=== PATIENT | female | born 1985 | race Caucasian/White ===

== ENCOUNTER 2017-06-06 15:00 | Outpatient (CLI) | payer MEDICAID ==
[2017-06-06] MEDS ORDERED: IOTHALAMATE MEGLUMINE 50 ML VIAL ONE (15:21)
[2017-06-06] MEDS ORDERED: IOTHALAMATE MEGLUMINE 50 ML VIAL IVP ONE (15:51)
--- NOTE | 2017-06-06 18:51 | XRAY Report ---
HYSTEROSALPINGOGRAM: 06/06/2017 CLINICAL INDICATION: Infertility, pelvic inflammatory disease. Hysterosalpingogram was performed in conjunction with Dr. Alcantar. The uterine cavity appears unrema rkable. The left fallopian tube is patent, with free spill into the pelvis. The right fallopian tub e demonstrates opacification of only the proximal intramuscular portion, without more distal opacific ation. No spill is seen from the right tube. IMPRESSION: PATENT LEFT FALLOPIAN TUBE, WITH FREE SPILL INTO THE PELVIS. ONLY A SMALL SEGMENT OF TH E RIGHT FALLOPIAN TUBE WAS OPACIFIED, WITHOUT FILLING OF THE MID AND DISTAL PORTIONS, AND NO FREE SPI LL ON THE RIGHT. FLUOROSCOPY TIME: 1 MINUTE 26 SECONDS; 5 SPOT IMAGES OBTAINED. JOB #: [id number] EXT JOB #:[id number]
== END 2017-06-06 15:01 | disposition home or self-care (01) ==
LOC: DI 15:00
PROVIDERS: ATTEND Obstetrics & Gynecology
DX: N73.8 Other specified female pelvic inflammatory diseases (principal)
CPT/HCPCS: 58340; 74740; Q9961

== ENCOUNTER 2017-06-21 12:40 | Outpatient (CLI) | payer MEDICAID | END 2017-06-21 12:41 | disposition home or self-care (01) | LOC: LAB.N 12:40 | PROVIDERS: ATTEND Obstetrics & Gynecology | DX: N92.6 Irregular menstruation, unspecified (principal) | CPT/HCPCS: 36415; 84144 ==

== ENCOUNTER 2018-09-24 14:33 | Outpatient (CLI) | payer SELFPAY | END 2018-09-24 14:34 | disposition home or self-care (01) | LOC: LAB 14:33 | PROVIDERS: ATTEND Registered Nurse | DX: O46.91 Antepartum hemorrhage, unspecified, first trimester (principal) | CPT/HCPCS: 36415; 84702; 86900; 86901 ==

== ENCOUNTER 2018-09-26 15:11 | Outpatient (CLI) | payer MEDICAID | END 2018-09-26 15:12 | disposition home or self-care (01) | LOC: LAB 15:11 | PROVIDERS: ATTEND Registered Nurse | DX: O46.91 Antepartum hemorrhage, unspecified, first trimester (principal) | CPT/HCPCS: 36415; 84702 ==

== ENCOUNTER 2018-09-27 22:45 | Outpatient (CLI) | payer MEDICAID ==
--- NOTE | 2018-09-28 02:17 | Ultrasound Report ---
Reason: VAGINAL BLEEDING FIRST TRIMESTER Procedure Date: 09/27/2018 Accession Number: [id number] / [id number] Procedure: US - OB Transvaginal CPT Code: FULL RESULT: EXAM: FIRST TRIMESTER OBSTETRIC ULTRASOUND (Less than 11 weeks) EXAM DATE: 09/28/2018 12:08 AM. CLINICAL HISTORY: Vaginal bleeding, first trimester LMP: 08/10/2018. COMPARISONS: None. TECHNIQUE: Transabdominal and transvaginal ultrasound examination with static image documentation. CLINICAL DATES: EGA 7 weeks 0 days with JAMARCUS 05/17/2019 based on LMP. ASSESSMENT: Gestational Sac: Single intrauterine. Mean gestational sac diameter: 18.3 mm = 6 weeks 1 day. Minimal irregularity of the anterior margin of the gestational sac. Embryo: CRL (crown-rump length) 8.4 mm = 6 weeks 6 days. Cardiac activity: 123 beats per minute. Yolk sac: 2.7 mm. Amniotic fluid: Not accurately assessed at this gestational age. Early placenta: Not visible at this gestational age. Other: 5 mm perigestational hemorrhage.. MATERNAL STRUCTURES: Uterus: Anteverted. Unremarkable. Cervix: Closed. Right Ovary/Adnexa: The ovary measures 2.8 x 1.7 x 1.4 cm, volume 4 cc. Unremarkable. Left Ovary/Adnexa: The ovary measures 2.8 x 2.0 x 1.9 cm, volume 6 cc. 1.6 cm corpus luteum. Free Fluid: Small amount in the cul-de-sac. Other: None. IMPRESSION: 1. Single viable intrauterine at EGA 6 weeks 6 days with JAMARCUS 05/18/2019 based on crown-rump length, which is concordant with clinical dates. 2. Assigned dating is JAMARCUS 05/17/2019 based on LMP. 3. Small desi-gestational hemorrhage. RADIA The call report notification system was initiated by Dr. Eduardo Bernstein at 01:33 AM on 09/28/2018. The above call report findings were discussed with Bev White by Dr. Eduardo Bernstein at 01:39 AM on 09/28/2018.
--- NOTE | 2018-09-28 21:58 | Ultrasound Report ---
Reason: VAGINAL BLEEDING, FIRST TRIMESTER Procedure Date: 09/28/2018 Accession Number: [id number] / [id number] Procedure: US - OB First Trimester CPT Code: FULL RESULT: EXAM: FIRST TRIMESTER OBSTETRIC ULTRASOUND (Less than 11 weeks) EXAM DATE: 09/28/2018 12:08 AM. CLINICAL HISTORY: Vaginal bleeding, first trimester LMP: 08/10/2018. COMPARISONS: None. TECHNIQUE: Transabdominal and transvaginal ultrasound examination with static image documentation. CLINICAL DATES: EGA 7 weeks 0 days with JAMARCUS 05/17/2019 based on LMP. ASSESSMENT: Gestational Sac: Single intrauterine. Mean gestational sac diameter: 18.3 mm = 6 weeks 1 day. Minimal irregularity of the anterior margin of the gestational sac. Embryo: CRL (crown-rump length) 8.4 mm = 6 weeks 6 days. Cardiac activity: 123 beats per minute. Yolk sac: 2.7 mm. Amniotic fluid: Not accurately assessed at this gestational age. Early placenta: Not visible at this gestational age. Other: 5 mm perigestational hemorrhage.. MATERNAL STRUCTURES: Uterus: Anteverted. Unremarkable. Cervix: Closed. Right Ovary/Adnexa: The ovary measures 2.8 x 1.7 x 1.4 cm, volume 4 cc. Unremarkable. Left Ovary/Adnexa: The ovary measures 2.8 x 2.0 x 1.9 cm, volume 6 cc. 1.6 cm corpus luteum. Free Fluid: Small amount in the cul-de-sac. Other: None. IMPRESSION: 1. Single viable intrauterine at EGA 6 weeks 6 days with JAMARCUS 05/18/2019 based on crown-rump length, which is concordant with clinical dates. 2. Assigned dating is JAMARCUS 05/17/2019 based on LMP. 3. Small desi-gestational hemorrhage. RADIA The call report notification system was initiated by Dr. Eduardo Bernstein at 01:33 AM on 09/28/2018. The above call report findings were discussed with Bev White by Dr. Eduardo Bernstein at 01:39 AM on 09/28/2018.
== END 2018-09-27 22:46 | disposition home or self-care (01) ==
LOC: DI 22:45
PROVIDERS: ATTEND Registered Nurse
DX: O46.91 Antepartum hemorrhage, unspecified, first trimester (principal); Z3A.01 Less than 8 weeks gestation of pregnancy
CPT/HCPCS: 76801; 76817

== ENCOUNTER 2018-10-19 12:21 | Outpatient (CLI) | payer MEDICAID ==
[2018-10-19 13:08] LABS: BASOPHILS # (AUTO) 0.1 10^3/uL (0.0-0.1); BASOPHILS % (AUTO) 0.7 %; EOSINOPHILS # (AUTO) 0.1 10^3/uL (0.0-0.7); EOSINOPHILS % (AUTO) 1.9 %; HGB - HEMOGLOBIN 13.7 g/dL (12.0-16.0); LYMPHOCYTES # (AUTO) 1.8 10^3/uL (1.5-3.5); LYMPHOCYTES % (AUTO) 24.5 %; MEAN CORPUSCULAR HEMOGLOBIN 31.4 pg (27.0-31.0); MEAN CORPUSCULAR HGB CONC 34.3 g/dL (32.0-36.0); MEAN CORPUSCULAR VOLUME 91.5 fL (81.0-99.0); MONOCYTES # (AUTO) 0.5 10^3/uL (0.0-1.0); MONOCYTES % (AUTO) 6.2 %; NEUTROPHILS % (AUTO) 66.7 %; PLT - PLATELET COUNT 296 10^3/uL (130-450); RED BLOOD COUNT 4.35 10^6/uL (4.20-5.40); RED CELL DISTRIBUTION WIDTH 11.7 % (12.0-15.0); WHITE BLOOD COUNT 7.5 x10^3/uL (4.8-10.8)
[2018-10-19 13:09] LABS: BILIRUBIN,URINE NEGATIVE (NEGATIVE); GLUCOSE, URINE (UA) NEGATIVE (NEGATIVE); KETONES,URINE (UA) NEGATIVE (NEGATIVE); LEUKOCYTE ESTERASE, URINE NEGATIVE (NEGATIVE); NITRITE,URINE NEGATIVE (NEGATIVE); OCCULT BLOOD,URINE NEGATIVE (NEGATIVE); PH,URINE 7.5 PH (5.0-7.5); PROTEIN,URINE NEGATIVE (NEGATIVE); UROBILINOGEN,URINE 0.2 (NORMAL) E.U./dL (NORMAL)
[2018-10-19 13:22] LABS: CLARITY,URINE CLEAR (CLEAR)
[2018-10-19 13:23] LABS: BACTERIA,URINE None Seen /HPF (None Seen); RBC,URINE None Seen /HPF (0-5); SQUAMOUS EPITHELIAL CELL,UR FEW Squamous (<= Few)
[2018-10-20 11:46] LABS: HEPATITIS C ANTIBODY NON-REACTIVE (NON-REACTIVE)
[2018-10-20 12:02] LABS: HEPATITIS B SURFACE ANTIGEN NON-REACTIVE (NON-REACTIVE)
[2018-10-20 14:02] LABS: HIV AG/AB 4TH GEN NON-REACTIVE (NON-REACTIVE)
== END 2018-10-19 12:22 | disposition home or self-care (01) ==
LOC: LAB 12:21
PROVIDERS: ATTEND Registered Nurse
DX: O09.521 Supervision of elderly multigravida, first trimester (principal)
CPT/HCPCS: 36415; 81001; 81599; 85025; 86592; 86762; 86803; 86850; 86900; 86901; 87086; 87340; 87389

== ENCOUNTER 2018-10-25 08:00 | Outpatient (CLI) | payer MEDICAID ==
[2018-10-25 20:55] LABS: ALBUMIN 3.3 g/dL (3.2-5.5); ALBUMIN/GLOBULIN RATIO 1.1 (1.0-2.2); BILIRUBIN,TOTAL 0.6 mg/dL (0.2-1.0); CALCIUM 8.9 mg/dL (8.5-10.3); CREATININE 0.5 mg/dL (0.4-1.0); TOTAL PROTEIN 6.4 g/dL (6.7-8.2)
[2018-10-25 21:25] LABS: HB2 TOTAL 13.3 g/dL; HEMOGLOBIN A1C 0.41 g/dL
== END 2018-10-25 23:59 | disposition home or self-care (01) ==
LOC: LAB.N 08:00
PROVIDERS: ATTEND Registered Nurse
DX: O99.211 Obesity complicating pregnancy, first trimester (principal)
CPT/HCPCS: 36415; 80053; 82950; 83036

== ENCOUNTER 2018-10-31 08:36 | Outpatient (CLI) | payer MEDICAID | END 2018-10-31 08:37 | disposition home or self-care (01) | LOC: LAB 08:36 | PROVIDERS: ATTEND Registered Nurse | DX: O99.810 Abnormal glucose complicating pregnancy (principal) | CPT/HCPCS: 36415; 82951; 82952 ==

== ENCOUNTER 2018-11-16 15:42 | Outpatient (CLI) | payer MEDICAID ==
[2018-11-16 18:40] LABS: MUDS CUTOFF CONCENTRATIONS CUTOFF CONC BELOW:
[2018-11-16 18:59] LABS: AMPHETAMINE SCREEN,URINE NEGATIVE (NEGATIVE); BENZODIAZEPINES SCREEN, URINE NEGATIVE (NEGATIVE); COCAINE SCREEN URINE NEGATIVE (NEGATIVE); METHADONE SCREEN, URINE NEGATIVE (NEGATIVE); METHAMPHETAMINES SCREEN, URINE NEGATIVE (NEGATIVE); OPIATE SCREEN, URINE NEGATIVE (NEGATIVE); OXYCODONE SCREEN, URINE NEGATIVE (NEGATIVE); TRICYCLIC ANTIDEPRESSANT,URINE NEGATIVE (NEGATIVE)
[2018-11-16 19:00] LABS: PROPOXYPHENE SCREEN, URINE NEGATIVE (NEGATIVE)
== END 2018-11-16 23:59 | disposition home or self-care (01) ==
LOC: LAB.R 15:42
PROVIDERS: ATTEND Registered Nurse
DX: Z33.1 Pregnant state, incidental (principal)
CPT/HCPCS: 80306

== ENCOUNTER 2018-12-20 16:38 | Outpatient (CLI) | payer MEDICAID | END 2018-12-20 16:39 | disposition home or self-care (01) | LOC: LAB 16:38 | PROVIDERS: ATTEND Obstetrics & Gynecology | DX: O09.521 Supervision of elderly multigravida, first trimester (principal) | CPT/HCPCS: 36415; 82105 ==

== ENCOUNTER 2019-01-01 08:41 | Outpatient (CLI) | payer MEDICAID ==
--- NOTE | 2019-01-01 15:45 | Ultrasound Report ---
Reason: SUPERVISION OF ELDERLY MULTIGRAVIDA,FIRST TRIMESTE Procedure Date: 01/01/2019 Accession Number: [id number] / [id number] Procedure: US - OB Detailed Eval CPT Code: FULL RESULT: EXAM: COMPLETE OBSTETRICAL ULTRASOUND EXAM DATE: 01/01/2019 12:16 PM. CLINICAL HISTORY: anatomic survey. COMPARISON: None. TECHNIQUE: Real-time sonographic evaluation of the fetus performed by the addiction medicine physician. Multiple security representative static images were saved for review. DATING: Established EGA 20 weeks 4 days with JAMARCUS 05/17/2019 based on LMP/working due date. EGA 20 weeks 3 days with JAMARCUS 05/18/2019 based on first ultrasound. EGA 20 weeks 6 days with JAMARCUS 05/13/2019 based on the current ultrasound. GENERAL EVALUATION Zaman . Cardiac activity: 138 bpm. movement: Visualized. Presentation: Cephalic. Placenta: Posterior/fundal position. No evidence for previa. Umbilical cord: 3 vessel cord. Central placental cord origin. Amniotic fluid: Subjectively normal. MVP 5.0 cm and LAZARUS of 16.2 cm. BIOMETRY Bi-Parietal Diameter (BPD): 5.24 cm, 21 weeks 6 days Head Circumference (HC): 18.4 cm, 20 weeks 5 days Abdominal Circumference (AC): 16.4 cm, 21 weeks 3 days Femur Length (FL): 3.29 cm, 20 weeks 1 day Estimated Weight: 389 g, 66th percentile for 20 weeks 4 days. ANATOMY The intracranial structures, profile, face/nose/lips, spine, 4 chamber heart and outflow tracts, stomach, abdominal wall and cord insertion, diaphragm, kidneys, bladder, and extremities were visualized and demonstrate no abnormality with the following caveat: Note is made of an echogenic apparently posterior intrathoracic 1 x 0.8 x 0.7 cm echogenic mass. Based on provided images, relationship of the mass to the heart/lungs is not definitely established. Microcystic Cpam, cardiac rhabdomyoma and pulmonary sequestration are among imaging findings in this anatomic area that can have this appearance. MATERNAL STRUCTURES Uterus: Unremarkable. Cervix: Long and closed. Transabdominal length 5.7 cm. Right ovary/adnexa: Unremarkable. Left ovary/adnexa: Unremarkable. Free fluid: None. IMPRESSION: 1. Zaman live intrauterine with gestational age 20 weeks 4 days based on LMP. 2. Estimated weight is within expected limits for assigned dating. 3. Finding of abnormal echogenic 1 cm likely thoracic mass as described in detail above. Recommendation: Subspecialty referral for tertiary obstetric care. RADIA The above call report findings were discussed with Belén Archer by Dr. Yossi Kim at 03:25 PM on 01/01/2019.
== END 2019-01-01 08:42 | disposition home or self-care (01) ==
LOC: DI 08:41
PROVIDERS: ATTEND Obstetrics & Gynecology
DX: O09.521 Supervision of elderly multigravida, first trimester (principal); O28.3 Abnormal ultrasonic finding on antenatal screening of mother; Z3A.20 20 weeks gestation of pregnancy
CPT/HCPCS: 76811

== ENCOUNTER 2019-03-22 08:49 | Outpatient (CLI) | payer MEDICAID ==
[2019-03-22 09:25] LABS: HGB - HEMOGLOBIN 12.2 g/dL (12.0-16.0); MEAN CORPUSCULAR HEMOGLOBIN 30.8 pg (27.0-31.0); MEAN CORPUSCULAR HGB CONC 33.9 g/dL (32.0-36.0); MEAN CORPUSCULAR VOLUME 90.9 fL (81.0-99.0); MEAN PLATELET VOLUME 9.7 fL (7.9-10.8); RED BLOOD COUNT 3.96 10^6/uL (4.20-5.40); RED CELL DISTRIBUTION WIDTH 12.9 % (12.0-15.0); WHITE BLOOD COUNT 9.4 x10^3/uL (4.8-10.8)
== END 2019-03-22 08:50 | disposition home or self-care (01) ==
LOC: LAB 08:49
PROVIDERS: ATTEND Obstetrics & Gynecology
DX: Z34.90 Encounter for supervision of normal pregnancy, unspecified, unspecified trimester (principal); O99.810 Abnormal glucose complicating pregnancy; O28.3 Abnormal ultrasonic finding on antenatal screening of mother
CPT/HCPCS: 36415; 82951; 82952; 85027; 86850

== ENCOUNTER 2019-04-05 15:33 | Outpatient (CLI) | payer MEDICAID ==
[2019-04-05 15:48] VITALS: BP 127/79
--- NOTE | 2019-04-21 23:59 | PROCEDURE REPORT ---
- HPI Diagnosis/Indication for NST: Other (Patient is a 33-year-old G5, P1 at 33 weeks 6 days estimated gestational age here for NST for Fetus with CPAM.) Current EDU 05/18/19 Gestation 33 Weeks and 6 Days 5 Para 1 Vital Signs Temperature 98.2 F 04/05/19 15:47 Heart Rate 89 04/05/19 15:47 Respiratory Rate 16 04/05/19 15:47 Blood Pressure 127/79 04/05/19 15:47 O2 Saturation 100 04/05/19 15:47 Temperature 98.2 F 04/05/19 15:47 Heart Rate 89 04/05/19 15:47 Respiratory Rate 16 04/05/19 15:47 Blood Pressure 127/79 04/05/19 15:47 O2 Saturation 100 04/05/19 15:47 - NST Procedure NST Procedure Start Date 04/05/19 Start Time 15:45 Vibroacoustic Stimulation Used No Patient States Movement Yes EFM 140 mod mian 15x15 accels no decels TOCO: Quiet - Results and Plan Findings/Impression: 33-year-old G5, P1 at 33 weeks 6 days estimated gestational age with a fetus affected by CPM. Category 1 tracing Continue with routine OB care with follow-up with MFM This includes twice weekly NSTs and weekly LAZARUS Plan for delivery at [facility] for possible surigcal support
== END 2019-04-05 16:10 | disposition home or self-care (01) ==
LOC: WFO 15:33 → FBP 15:38 → WFO 16:10
PROVIDERS: ATTEND Obstetrics & Gynecology
DX: O36.8930 Maternal care for other specified fetal problems, third trimester, not applicable or unspecified (principal); Z3A.33 33 weeks gestation of pregnancy
CPT/HCPCS: 59025

== ENCOUNTER 2019-04-25 15:46 | Outpatient (CLI) | payer MEDICAID ==
--- NOTE | 2019-04-29 10:46 | Ultrasound Report ---
Reason: CPAM, SCREENING Procedure Date: 04/25/2019 Accession Number: [id number] / [id number] Procedure: US - OB Limited CPT Code: FULL RESULT: EXAM: LIMITED OBSTETRICAL ULTRASOUND EXAM DATE: 04/25/2019 03:58 PM. CLINICAL HISTORY: screening. Evaluate position and LAZARUS. COMPARISON: OB DETAILED EVAL 01/01/2019 9:43 AM. TECHNIQUE: Real-time sonographic evaluation of the fetus performed by the licensed customs broker. Multiple sales representative business courses static images were saved for review. No transvaginal imaging acquired. DATING: Established EGA 36 weeks 6 days with JAMARCUS 05/17/2019 based on LMP. GENERAL EVALUATION Zaman . Cardiac activity: 141 bpm. movement: Visualized. Presentation: Breech position. Placenta: No abruption or previa. Posterior fundal position. Amniotic fluid: Normal. LAZARUS 24.2 cm. MVP 7 cm. ANATOMY Normal limited anatomy. MATERNAL STRUCTURES Cervix is closed measuring 4.2 cm. IMPRESSION: 1. Zaman live intrauterine with gestational age 36 weeks 6 days based on established JAMARCUS. 2. Breech position. 3. Polyhydramnios based on LAZARUS of 24.2 cm. RADIA
== END 2019-04-25 15:47 | disposition home or self-care (01) ==
LOC: DI 15:46
PROVIDERS: ATTEND Obstetrics & Gynecology
DX: Z36.89 Encounter for other specified antenatal screening (principal); O40.3XX0 Polyhydramnios, third trimester, not applicable or unspecified; Z3A.36 36 weeks gestation of pregnancy; O32.1XX0 Maternal care for breech presentation, not applicable or unspecified
CPT/HCPCS: 76815

== ENCOUNTER 2019-11-04 18:22 | Outpatient (CLI) | payer MEDICAID ==
--- NOTE | 2019-11-05 17:06 | Ultrasound Report ---
Reason: UMBILICAL HERNIA Procedure Date: 11/04/2019 Accession Number: [id number] / [id number] Procedure: US - Abdomen Limited CPT Code: Final Report FULL RESULT: EXAM: ABDOMEN ULTRASOUND LIMITED, RIGHT UPPER QUADRANT EXAM DATE: 11/04/2019 07:41 PM. CLINICAL HISTORY: UMBILICAL HERNIA. COMPARISON: None. TECHNIQUE: Real-time scanning was performed with static images obtained. FINDINGS: Sonographic assessment of the area of concern demonstrates an umbilical fat-containing hernia, nonreducible, with the overall sac size measuring approximately 2.3 x 1.4 cm. There is a small volume of fluid within the hernia. The defect measures approximately 6-7 mm. No entrapped bowel loops are identified. IMPRESSION: 1. Fatty umbilical hernia. RADIA
== END 2019-11-04 18:23 | disposition home or self-care (01) ==
LOC: DI 18:22
PROVIDERS: ATTEND Nurse Practitioner
DX: K42.9 Umbilical hernia without obstruction or gangrene (principal)
CPT/HCPCS: 76705

== ENCOUNTER 2020-05-25 16:11 | Emergency (ER) | payer MEDICAID ==
--- NOTE | 2020-05-25 17:27 | ED Physician Documentation ---
PD HPI URI - Stated complaint Stated Complaint: COUGH - Chief complaint Chief Complaint: Resp - History obtained from History obtained from: Patient - History of Present Illness Timing - onset: How many weeks ago (1) Timing duration: Weeks (1) Timing details: Gradual onset Pain level max: 0 Pain level now: 0 Associated symptoms: Rhinorrhea, Dry cough. No: Fever, Chills, Sinus pain, Sore throat, Hemoptysis, Chest pain, Dyspnea Contributing factors: Sick contact Recently seen: Not recently seen - Additional information Additional information: Patient states that she works at [employer] and was sent here for a Covid test. Review of Systems Constitutional: denies: Fever, Chills Nose: reports: Rhinorrhea / runny nose, Congestion Respiratory: reports: Cough GI: denies: Abdominal Pain, Vomiting, Diarrhea Skin: denies: Rash Musculoskeletal: denies: Neck pain, Back pain Neurologic: denies: Headache PD PAST MEDICAL HISTORY - Past Medical History Past Medical History: Yes Psych: Depression, Anxiety, Panic attacks, Post traumatic stress disorder - Past Surgical History Past Surgical History: No - Present Medications Home Medications: Ambulatory Orders Medication Instructions Recorded Confirmed Phenazopyridine [Pyridium] 100 mg PO Q8H PRN #9 tablet 12/01/15 Cephalexin [Keflex] 500 mg PO Q6H #28 capsule 02/03/16 Phenazopyridine [Pyridium] 100 mg PO Q8H PRN #9 tablet 02/03/16 Benzonatate [Tessalon] 200 mg PO TID PRN #30 capsule 05/25/20 - Allergies Allergies/Adverse Reactions: Allergies Allergy/AdvReac Type Severity Reaction Status Date / Time No Known Drug Allergies Allergy Verified 05/25/20 16:22 - Social History Does the pt smoke?: No Smoking Status: Never smoker Does the pt drink ETOH?: Yes Does the pt have substance abuse?: No - Immunizations Immunizations are current?: Yes - POLST Patient has POLST: No PD ED PE NORMAL - Vitals Vital signs reviewed: Yes - General General: Alert and oriented X 3, No acute distress - HEENT HEENT: Moist mucous membranes - Neck Neck: Supple, no meningeal sign - Cardiac Cardiac: RRR, Strong equal pulses - Respiratory Respiratory: No respiratory distress, Clear bilaterally - Abdomen Abdomen: Soft, Non tender, Non distended - Derm Derm: Warm and dry - Neuro Neuro: Alert and oriented X 3 - Psych Psych: Normal mood, Normal affect Results - Vitals Vitals: Vital Signs - 24 hr 05/25/20 05/25/20 16:22 17:49 Temperature 36.6 C 36.6 C Heart Rate 98 88 Respiratory 16 16 Rate Blood Pressure 130/100 H 128/90 H O2 Saturation 94 96 Oxygen O2 Source Room air PD MEDICAL DECISION MAKING - ED course Complexity details: considered differential, d/w patient ED course: Patient is well-appearing, nontoxic. Afebrile. No hypoxia. No respiratory distress. Covid swab performed. We will have her self quarantine until results are available. Patient counseled regarding signs and symptoms for which I believe and urgent re-evaluation would be necessary. Patient with good understanding of and agreement to plan and is comfortable going home at this time This document was made in part using voice recognition software. While efforts are made to proofread this document, sound alike and grammatical errors may occur. Departure - Departure Disposition: 01 Home, Self Care Clinical Impression: Viral URI Condition: Good Instructions: ED URI Viral Follow-Up: Makenna Linda ARNP, DIRECTOR OF MARKETING-C [Primary Care Provider] - As Needed Prescriptions: Benzonatate [Tessalon] 200 mg PO TID PRN #30 capsule PRN Reason: Cough Comments: You have a Covid test pending. You need to self quarantine until the result is done and negative. Do not leave your house. Do not get near anybody. The results should be done in 48 to 72 hours. We will call with a positive result, the fastest way to get a negative result for confirmation though is to go to the hospital website at [email or web address], click on the my [facility] tab and sign up for the patient portal. If any friends or family get sick and would like to have a Covid test done, but do not have signs or symptoms that would necessitate being hospitalized, we encourage testing through our coronavirus swabbing station, call [phone] to schedule an appointment. Discharge Date/Time: 05/25/20 17:49
[2020-05-25 17:50] VITALS: BP 128/90
== END 2020-05-25 17:49 | disposition home or self-care (01) ==
LOC: ED 16:11
DX: J06.9 Acute upper respiratory infection, unspecified (principal); Z20.828 Contact with and (suspected) exposure to other viral communicable diseases
CPT/HCPCS: 99283

== ENCOUNTER 2020-10-23 14:56 | Outpatient (CLI) | payer MEDICAID | END 2020-10-23 14:57 | disposition home or self-care (01) | LOC: LAB 14:56 | PROVIDERS: ATTEND Surgery | DX: Z01.812 Encounter for preprocedural laboratory examination (principal); Z20.822 Contact with and (suspected) exposure to COVID-19; K40.90 Unilateral inguinal hernia, without obstruction or gangrene, not specified as recurrent; K42.9 Umbilical hernia without obstruction or gangrene ==

== ENCOUNTER 2020-10-26 06:10 | Day surgery (SDC) | payer MEDICAID ==
[2020-10-26] MEDS ORDERED: ceFAZolin 2 GM/50 ML 2 GM/50 ML BAG IV ONE (06:19)
[2020-10-26 06:45] LABS: HCG UR QUAL NEGATIVE
[2020-10-26] MEDS ORDERED: LACTATED RINGERS 1,000 ML IV ONE ×2 (06:49→09:16)
[2020-10-26] MEDS ORDERED: LIDOCAINE 2%-EPI 1:100000 20 ML MDV ONE (07:00)
[2020-10-26] MEDS ORDERED: ceFAZolin 1 GM VIAL ONE (07:01)
[2020-10-26] MEDS ORDERED: BUPIVACAINE 0.5% PF 30 ML VIAL ONE (07:01)
[2020-10-26] MEDS ORDERED: NALOXONE 0.4 MG/ML VIAL IVP PRN (07:12)
[2020-10-26] MEDS ORDERED: METOCLOPRAMIDE 10 MG/2 ML VIAL IVP PRN (07:12)
[2020-10-26] MEDS ORDERED: ePHEDrine 50 MG/ML VIAL IVP PRN (07:12)
[2020-10-26] MEDS ORDERED: fentaNYL 100 MCG/2 ML VIAL IVP PRN (07:12)
[2020-10-26] MEDS ORDERED: ONDANSETRON 4 MG/2 ML VIAL IVP PRN ×3 (07:12→11:55)
[2020-10-26] MEDS ORDERED: MORPHINE 2 MG/ML CARPUJECT IVP PRN (07:12)
[2020-10-26] MEDS ORDERED: ATROPINE ABBOJECT 1 MG/10 ML SYRINGE IVP PRN (07:12)
[2020-10-26] MEDS ORDERED: HYDROmorphone 0.5 MG/0.5 ML SYRINGE IVP PRN (07:12)
[2020-10-26] MEDS ORDERED: PROPOFOL 200 MG/20 ML VIAL IVP ONE (07:14)
[2020-10-26] MEDS ORDERED: MIDAZOLAM 2 MG/2 ML VIAL ONE ×2 (07:14→07:46)
[2020-10-26] MEDS ORDERED: LIDOCAINE-MPF 2% 5 ML VIAL ONE (07:14)
[2020-10-26] MEDS ORDERED: LIDOCAINE 2%-EPI 1:100000 20 ML MDV SUBQ ONE ×2 (07:24)
[2020-10-26] MEDS ORDERED: BUPIVACAINE 0.5% PF 30 ML VIAL INFIL ONE ×2 (07:24)
[2020-10-26] MEDS ORDERED: ceFAZolin 1 GM VIAL IR ONE (07:24)
--- NOTE | 2020-10-26 07:43 | ANESTHESIA ---
Pre-Anesthesia VS, & Labs - Diagnosis inguinal hernia, umbilical hernia - Procedure inguinal hernia repair, umbilical hernia repair Vital Signs: Temp Pulse Resp BP Pulse Ox 36.4 C L 87 16 118/79 98 10/26/20 06:44 10/26/20 06:44 10/26/20 06:44 10/26/20 06:44 10/26/20 06:44 Height: 5 ft 3 in Weight (kg): 96.3 kg Body Mass Index: 37.5 BMI Classification: Obese - NPO >8 hours - Is Patient ?: No Home Medications and Allergies Home Medications: Ambulatory Orders No Known Home Medications 10/20/20 Active Medications Atropine Sulfate (Atropine Abboject 1 Mg/10 Ml Syringe) 0.5 mg IVP Q5M PRN PRN Reason: Bradycardia Stop: 10/27/20 07:12 Ephedrine Sulfate (Ephedrine 50 Mg/Ml Vial) 10 mg IVP Q5M PRN PRN Reason: HYPOTENSION Stop: 10/27/20 07:12 Fentanyl (Fentanyl 100 Mcg/2 Ml Vial) 25 - 50 mcg IVP Q5M PRN PRN Reason: BREAKTHROUGH PAIN (2nd Choice) Stop: 10/27/20 07:12 Hydromorphone HCl (Hydromorphone 0.5 Mg/0.5 Ml Syringe) 0.2 - 0.6 mg IVP Q5M PRN PRN Reason: PAIN (First Choice) Stop: 10/27/20 07:12 Lactated Ringer's (Lr) 1,000 mls @ 100 mls/hr IV .Q10H JUAN Stop: 10/26/20 17:59 Metoclopramide HCl (Metoclopramide 10 Mg/2 Ml Vial) 10 mg IVP Q6HR PRN PRN Reason: N/V not relieved by Zofran Morphine Sulfate (Morphine 2 Mg/Ml Carpuject) 2 - 4 mg IVP Q5M PRN PRN Reason: PAIN (3rd Choice) Stop: 10/27/20 07:12 Naloxone HCl (Naloxone 0.4 Mg/Ml Vial) 0.1 mg IVP Q2M PRN PRN Reason: RESP RATE <8 Stop: 10/27/20 07:12 Ondansetron HCl (Ondansetron 4 Mg/2 Ml Vial) 4 mg IVP ONCE PRN PRN Reason: N/V (First Choice) Stop: 10/27/20 07:12 No Known Home Medications 10/20/20 Allergies/Adverse Reactions: Allergies Allergy/AdvReac Type Severity Reaction Status Date / Time No Known Drug Allergies Allergy Verified 10/26/20 07:42 Anes History & Medical History - Anesthetic History Anesthesia Complications: reports: No previous complications Family history of Anesthesia Complications: Denies Family history of Malignant Hyperthermia: Denies - Medical History Cardiovascular: reports: None Pulmonary: reports: None Gastrointestinal: reports: None Urinary: reports: Chronic bladder infection Musculoskeletal: reports: None Endocrine/Autoimmune: reports: None Smoking Status: Never smoker - Surgical History Gynecologic: reports: section Exam General: Alert, Oriented x3, Cooperative Dental: WNL Mouth Openin Fingerbreadth Neck Mobility: Normal Mallampati classification: II Thyromental Distance: 4-6 cm Respiratory: Lungs clear Cardiovascular: Regular rate Abdomen: Normal bowel sounds Extremities: No clubbing Neurological: Normal gait Mental/Cognitive Status: Alert/Oriented X3 Cognitive Status: Within normal limits Plan Anesthesia Type: General Consent for Procedure(s) Verified and Reviewed: Yes Code Status: Attempt Resuscitation ASA classification: 2-Mild systemic disease Is this case an emergency?: No
[2020-10-26] MEDS ORDERED: LACTATED RINGERS 1,000 ML IV SCH (08:00)
[2020-10-26] MEDS ORDERED: HYDROmorphone 1 MG/ML CARPUJECT ONE (08:18)
[2020-10-26] MEDS ORDERED: fentaNYL 100 MCG/2 ML VIAL ONE (08:18)
[2020-10-26] MEDS ORDERED: ONDANSETRON 4 MG/2 ML VIAL ONE ×2 (09:13→10:32)
[2020-10-26] MEDS ORDERED: DEXAMETHASONE 4 MG/ML VIAL ONE (09:13)
[2020-10-26] MEDS ORDERED: KETOROLAC 30 MG/ML VIAL ONE (09:13)
[2020-10-26] MEDS ORDERED: ACETAMINOPHEN 325 MG TABLET PO PRN (09:18)
[2020-10-26] MEDS ORDERED: IBUPROFEN 600 MG TABLET PO PRN (09:18)
[2020-10-26] MEDS ORDERED: oxyCODONE 5 MG TABLET PO PRN ×2 (09:18→11:54)
--- NOTE | 2020-10-26 09:40 | OPERATIVE REPORT ---
Operative Report - General Planned Procedure: Left inguinal hernia repair Umbilical hernia repair Pre-Op Diagnosis: Left inguinal hernia and umbilical hernia Procedure Performed: Left inguinal hernia repair Umbilical hernia repair Post Op Diagnosis: Left inguinal hernia and umbilical hernia - Procedure Note Primary Surgeon: Javid Anesthesia Provider: JUDD Adams Anesthesia Technique: General LMA Pathology: None Estimated Blood Loss (mL): 10 Indications: Symptomatic left inguinal and umbilical hernias Findings: Right inguinal hernia-Indirect Tiny umbilical hernia. Complications: None apparent - Other Other Information/Narrative: After obtaining informed consent, the patient is brought to the operating room and placed in the supine position on the operating table. Following successful induction of general endotracheal anesthesia, appropriate padding of all bony prominences, and placement of appropriate monitors, the abdomen was prepped and draped in the standard surgical fashion. A timeout was held per scope protocol. All elements of the surgical safety checklist were followed before, during, and after the procedure. We began the procedure by infiltrating a mixture of local anesthetics medial to the anterior superior iliac spine on the right. This was done to create an ileal inguinal nerve block. We then selected a site for an incision in the right lower quadrant just superior and lateral to the right pubic tubercle. This area was anesthetized with additional local anesthetic and an incision was created here.The incision was carried down through the skin and subcutaneous tissue to reveal the fascia of the external oblique aponeurosis. Retractor was placed and the aponeurosis was opened in direction of its fibers. The ilioinguinal nerve was immediately identified. The round ligament was identified with the hernia sac. It was divided and the sac placed back into the abdominal cavity. The sac was in the indirect position. We elected to repair the hernia with a large Prolene hernia system mesh implant. This was dipped in Ancef containing solution and then deployed into the defect. The posterior leaflet was straightened and flattened in the preperitoneal space. The inferior aspect of the anterior leaflet was then sewn to Narciso's ligament medially. Laterally it was tucked under the external beak aponeurosis. The wound was checked for hemostasis and irrigated with warm saline solution. It was aspirated free of all fluid and particulate matter. The extra oblique aponeurosis was then closed with a running locking Vicryl suture Chiquita's fascia was closed with Vicryl suture and Monocryl stitches were placed in the skin. We turned our attention down to the umbilical defect. An incision was created directly through the palpable mass at the umbilicus and carried down to the abdominal wall. The hernia sac and including tissue was determined to be preperitoneal fat. The existing defect in the abdominal wall was less than 3 mm in size. We removed all of the hernia sac and truncated it at its opening in the skin the edges of the fascia were carefully cleared to allow for easy healing. A single 0 Ethibond was placed in the hernia defect. The umbilicus was reconstructed using 0 and 3-0 Vicryl suture. Monocryl stitches were placed in the skin. Both incisions were then dressed with Dermabond. All sponge, needle, and instrument counts were correct at the conclusion of the case. The patient was allowed awaken from anesthesia without difficulty and taken to the postanesthesia care unit in good condition.
--- NOTE | 2020-10-26 09:57 | ANESTHESIA POST OP EVALUATION ---
Anesthesia Post Eval - Post Anesthesia Eval Vitals: Last Vital Signs Temp 37.3 C 10/26/20 09:35 Pulse 83 10/26/20 09:54 Resp 17 10/26/20 09:54 BP 132/83 H 10/26/20 09:54 Pulse Ox 95 10/26/20 09:54 CV Function Including HR & BP: Stable Pain Control: Satisfactory Nausea & Vomiting: Negative Mental Status: Baseline Respiratory Status: Airway Patent Hydration Status: Satisfactory Anesthesia Complications: None
[2020-10-26] MEDS ORDERED: oxyCODONE 5 MG TABLET ONE (11:32)
[2020-10-26 11:41] VITALS: BP 126/65
== END 2020-10-26 06:11 | disposition home or self-care (01) ==
LOC: SDS 06:10
PROVIDERS: ATTEND Surgery
PROC: 0YU60JZ Supplement Left Inguinal Region with Synthetic Substitute, Open Approach (ICD-10-PCS; principal; 2020-10-26 07:30)
PROC: 0WUF0JZ Supplement Abdominal Wall with Synthetic Substitute, Open Approach (ICD-10-PCS; 2020-10-26 07:30)
DX: K40.90 Unilateral inguinal hernia, without obstruction or gangrene, not specified as recurrent (principal); K42.9 Umbilical hernia without obstruction or gangrene; E66.9 Obesity, unspecified; Z68.37 Body mass index [BMI] 37.0-37.9, adult
CPT/HCPCS: 49505; 49585; 81025; A9270; C1781; J0690; J1170; J7120

== ENCOUNTER 2022-09-01 08:25 | Outpatient (CLI) | payer MEDICAID ==
[2022-09-01 12:30] LABS: HGB - HEMOGLOBIN 13.6 g/dL (12.0-16.0); MEAN CORPUSCULAR HEMOGLOBIN 31.1 pg (27.0-31.0); MEAN CORPUSCULAR HGB CONC 33.2 g/dL (32.0-36.0); MEAN CORPUSCULAR VOLUME 93.8 fL (81.0-99.0); MEAN PLATELET VOLUME 9.7 fL (7.9-10.8); RED BLOOD COUNT 4.37 10^6/uL (4.20-5.40); RED CELL DISTRIBUTION WIDTH 12.1 % (12.0-15.0); WHITE BLOOD COUNT 5.2 x10^3/uL (4.8-10.8)
[2022-09-01 12:49] LABS: CHOL/HDL RATIO 4.1 (<4.4); CHOLESTEROL 196 mg/dL; HDL CHOLESTEROL 48 mg/dL; LDL CHOLESTEROL,CALCULATED 129 mg/dL; LDL/HDL RATIO 2.7 (<4.4); TRIGLYCERIDES 93 mg/dL; VLDL CHOLESTEROL 19 mg/dL
[2022-09-01 12:55] LABS: ESTIMATED AVERAGE GLUCOSE 91 mg/dL (70-100); HEMOGLOBIN A1c% 4.8 % (4.27-6.07)
[2022-09-01 13:03] LABS: THYROID STIMULATING HORMONE 0.97 uIU/mL (0.34-5.60)
[2022-09-01 13:07] LABS: FERRITIN 21.2 ng/mL (11.0-306.8)
[2022-09-01 13:08] LABS: FREE T4 (FREE THYROXINE) 0.97 ng/dL (0.58-1.64)
[2022-09-01 13:09] LABS: PROLACTIN 19.61 ng/mL
[2022-09-01 13:30] LABS: FOLLICLE STIMULATING HORMONE 12.14 mIU/mL
[2022-09-01 13:31] LABS: LUTEINIZING HORMONE 11.06 mIU/mL
[2022-09-02 06:10] LABS: PROGESTERONE 0.2 ng/mL (.); SEX HORM BINDING GLOB SERUM 45.1 nmol/L (24.6-122.0)
[2022-09-02 07:09] LABS: ESTRADIOL 23.3 pg/mL (.)
== END 2022-09-01 08:26 | disposition home or self-care (01) ==
LOC: LAB.N 08:25
PROVIDERS: ATTEND Nurse Practitioner
DX: Z13.29 Encounter for screening for other suspected endocrine disorder (principal); Z13.220 Encounter for screening for lipoid disorders; E66.9 Obesity, unspecified; Z13.0 Encounter for screening for diseases of the blood and blood-forming organs and certain disorders involving the immune mechanism; Z13.1 Encounter for screening for diabetes mellitus
CPT/HCPCS: 36415; 80061; 82397; 82627; 82670; 82728; 83001; 83002; 83036; 83498; 83721; 84144; 84146; 84270; 84402; 84403; 84439; 84443; 85027